=== PATIENT | male | born 1940 | race Caucasian/White ===

== ENCOUNTER 2018-12-12 09:09 | Observation (INO) ==
[2018-12-12] MEDS ORDERED: ASPIRIN 325 MG TABLET PO STA (09:39)
[2018-12-12 10:04] LABS: Basophils % 0.5 % (0.0-0.8); Eosinophils # 0.1 10*3/uL (0.0-0.87); Eosinophils % 1.7 % (0.00-10.9); Hematocrit 42.1 VOL% (42.0-52.0); Hemoglobin 14.1 GM/DL (14.0-18.0); Immature Granulocytes % 0.3 %; Immature Granulocytes Absolute 0.02 #; Lymphocytes # 1.6 10*3/uL (1.4-4.0); Lymphocytes % 26.2 % (21.2-54.2); Mean Corpuscular HGB Conc 33.5 GM/DL (32-36); Mean Corpuscular Volume 94.8 FL (87-102); Mean Platelet Volume 9.5 FL (9.6-12.0); Monocytes % 6.7 % (1.7-12.7); Neutrophils % 64.6 % (38.7-73.9); Platelet Count 267 T/CUMM (130-400); Red Blood Count 4.44 MC/CUMM (3.8-5.5); Red Cell Distribution Width 12.5 % (9.3-17.3)
[2018-12-12 10:26] LABS: Albumin 4.5 G/DL (3.4-5.0); Bilirubin,Total 0.5 MG/DL (0.2-1.0); Calcium 9.5 MG/DL (8.5-10.1); Osmolality,Calculated 284.4 MOS/KG (273-304); Total Protein 7.2 G/DL (6.4-8.3)
[2018-12-12] MEDS ORDERED: BISACODYL 5 MG TABLET PO PRN (11:28)
[2018-12-12] MEDS ORDERED: ONDANSETRON 4 MG/2 ML VIAL IV PRN (11:28)
[2018-12-12] MEDS ORDERED: DOCUSATE SODIUM 100 MG CAPSULE PO PRN (11:28)
[2018-12-12] MEDS ORDERED: MAGNESIUM SULF RIDER 2 GM in PREMIX 1 EACH IV PRN (11:28)
[2018-12-12] MEDS ORDERED: MAGNESIUM SULF RIDER 4 GM in PREMIX 1 EACH IV PRN (11:28)
[2018-12-12] MEDS ORDERED: diphenhydrAMINE CAP 25 MG CAPSULE PO PRN (11:28)
[2018-12-12] MEDS ORDERED: PROMETHAZINE 25 MG TABLET PO PRN (11:28)
[2018-12-12] MEDS ORDERED: MORPHINE 4 MG/1 ML VIAL IV PRN (11:28)
[2018-12-12] MEDS ORDERED: guaiFENesin/DM ER 600-30 MG TABLET PO PRN (11:28)
[2018-12-12] MEDS ORDERED: ZALEPLON 5 MG CAPSULE PO PRN (11:28)
[2018-12-12] MEDS ORDERED: NITROGLYCERIN SL 0.4 MG TABLET SL PRN (11:32)
[2018-12-12] MEDS ORDERED: ENOXAPARIN 80 MG/0.8 ML SYRINGE SUBCUT ONE (11:32)
[2018-12-12] MEDS: SODIUM CHLORIDE 0.45% 1,000 ML IV SCH (12:53)
[2018-12-12] MEDS ORDERED: DEXTROSE 50% 25 GM/50 ML SYRINGE IV PRN (13:23)
[2018-12-12] MEDS ORDERED: GLUCAGON 1 MG VIAL IM PRN ×2 (13:23→13:24)
[2018-12-12] MEDS ORDERED: DEXTROSE 50% 25 GM/50 ML VIAL IV PRN (13:24)
[2018-12-12] MEDS: TAMSULOSIN 0.4 MG CAPSULE PO SCH (15:34)
[2018-12-12] MEDS: CARVEDILOL 12.5 MG TABLET PO SCH ×2 (15:34→17:33)
[2018-12-12] MEDS: ROSUVASTATIN 20 MG TABLET PO SCH (15:34)
[2018-12-12] MEDS: LOSARTAN 50 MG TABLET PO SCH (15:34)
[2018-12-12] MEDS: Canagliflozin [Invokana] 300 MG PO SCH (15:34)
[2018-12-12] MEDS: FENOFIBRATE 145 MG TABLET PO SCH (15:35)
[2018-12-12] MEDS: CILOSTAZOL 100 MG TABLET PO SCH ×2 (15:35→21:02)
[2018-12-12] MEDS: SPIRONOLACTONE 25 MG TABLET PO SCH (15:35)
[2018-12-12] MEDS: INSULIN LISPRO 100 UNIT/ML SUBCUT SCH ×2 (15:45→21:05)
[2018-12-12 15:54] LABS: Apearance,Urine CLEAR (Clear); Bilirubin,Urine Negative (Negative); Blood, Urine Negative (Negative); Glucose,Urine (UA) >=500 mg/dL (Negative); Hyaline Casts,Urine 1 /LPF (0-3); Ketones,Urine Negative (Negative); Nitrite,Urine Negative (Negative); Protein,Urine Negative; RBC,Urine <1 /HPF (0-4); Squamous Epithelial Cell,Urine Occasional /HPF (0-10); Urine Color Yellow (Yellow); Urine Specific Gravity 1.027 (1.001-1.035); Urine Urobilinogen < 2.0 EU/DL (0.2-1.0); WBC,Urine <1 /HPF (0-6)
[2018-12-12] MEDS: glipiZIDE 10 MG TABLET PO SCH (17:33)
[2018-12-12] MEDS: POTASSIUM CHLORIDE 20 MEQ TABLET PO PRN (18:37)
[2018-12-12] MEDS ORDERED: ALBUTEROL 2.5 MG/3 ML NEB RESP TX PRN (19:00)
[2018-12-12] MEDS ORDERED: CALCIUM CARBONATE CHEW 500 MG TABLET PO PRN (19:54)
[2018-12-12] MEDS ORDERED: ASPIRIN EC 325 MG TABLET PO SCH (23:00)
[2018-12-13 04:27] LABS: Basophils % 0.7 % (0.0-0.8); Eosinophils # 0.2 10*3/uL (0.0-0.87); Eosinophils % 2.9 % (0.00-10.9); Hematocrit 39.6 VOL% (42.0-52.0); Hemoglobin 13.3 GM/DL (14.0-18.0); Immature Granulocytes % 0.4 %; Immature Granulocytes Absolute 0.02 #; Lymphocytes # 1.5 10*3/uL (1.4-4.0); Lymphocytes % 26.7 % (21.2-54.2); Mean Corpuscular HGB Conc 33.6 GM/DL (32-36); Mean Corpuscular Volume 96.6 FL (87-102); Mean Platelet Volume 9.6 FL (9.6-12.0); Monocytes % 9.6 % (1.7-12.7); Neutrophils % 59.7 % (38.7-73.9); Platelet Count 248 T/CUMM (130-400); Red Cell Distribution Width 12.6 % (9.3-17.3); White Blood Count 5.5 T/CUMM (4-12)
[2018-12-13 05:05] LABS: Blood Urea Nitrogen 17 MG/DL (7-18); Calcium 8.8 MG/DL (8.5-10.1); Glucose 134 MG/DL (74-106); HDL Cholesterol 41 MG/DL (40-60); Osmolality,Calculated 280.5 MOS/KG (273-304); Risk Ratio 2.76; Triglycerides 197 MG/DL (2-150); Troponin I < 0.015 NG/ML (0.00-0.045); VLDL CHOLESTEROL 39.4 MG/DL
[2018-12-13] MEDS ORDERED: PANTOPRAZOLE 40 MG TABLET PO SCH (09:00)
[2018-12-13] MEDS: POTASSIUM CHLORIDE 20 MEQ TABLET PO PRN (10:06)
[2018-12-13] MEDS: SODIUM CHLORIDE 0.45% 1,000 ML IV SCH ×3 (10:06→11:52)
[2018-12-13] MEDS: CARVEDILOL 12.5 MG TABLET PO SCH ×2 (10:06→16:50)
[2018-12-13] MEDS: glipiZIDE 10 MG TABLET PO SCH ×2 (10:06→16:49)
[2018-12-13] MEDS: ROSUVASTATIN 20 MG TABLET PO SCH (10:06)
[2018-12-13] MEDS: CILOSTAZOL 100 MG TABLET PO SCH (10:06)
[2018-12-13] MEDS: INSULIN LISPRO 100 UNIT/ML SUBCUT SCH ×3 (10:07→16:49)
[2018-12-13] MEDS ORDERED: diphenhydrAMINE CAP 25 MG CAPSULE PO ONE (11:37)
[2018-12-13] MEDS ORDERED: MAGNESIUM SULF RIDER 2 GM in PREMIX 1 EACH IV PRN (11:37)
[2018-12-13] MEDS ORDERED: DIAZEPAM 5 MG TABLET PO ONE (11:37)
[2018-12-13] MEDS ORDERED: POTASSIUM CHLORIDE RIDER 10 MEQ in PREMIX 1 EACH IV PRN (11:37)
[2018-12-13] MEDS ORDERED: NITROGLYCERIN DRIP 50 MG/250 ML BOTTLE IV ONE (11:55)
[2018-12-13] MEDS ORDERED: HEPARIN/NACL 0.9% 2 UNITS/ML 1,000 ML IV ONE (11:55)
[2018-12-13] MEDS ORDERED: VERAPAMIL 5 MG/2 ML VIAL ONE (11:55)
[2018-12-13] MEDS ORDERED: LIDOCAINE 1% 20 ML VIAL ONE (11:55)
[2018-12-13] MEDS ORDERED: MIDAZOLAM 2 MG/2 ML VIAL ONE (12:11)
[2018-12-13] MEDS ORDERED: HYDROmorphone 2 MG/1 ML VIAL ONE (12:11)
[2018-12-13] MEDS ORDERED: ENOXAPARIN 30 MG/0.3 ML SYRINGE ONE (12:16)
[2018-12-13] MEDS: SPIRONOLACTONE 25 MG TABLET PO SCH (13:09)
[2018-12-13] MEDS: TAMSULOSIN 0.4 MG CAPSULE PO SCH (13:10)
[2018-12-13] MEDS: Canagliflozin [Invokana] 300 MG PO SCH (13:10)
[2018-12-13] MEDS: FENOFIBRATE 145 MG TABLET PO SCH (13:10)
[2018-12-13] MEDS: LOSARTAN 50 MG TABLET PO SCH (13:10)
[2018-12-13 16:49] VITALS: BP 133/69
== END 2018-12-13 16:52 | disposition home or self-care (01) ==
LOC: N.EDINP 09:09 → N.ED 09:09 → N.TELES 14:40
PROVIDERS: ADMIT Internal Medicine Cardiovascular Disease; ATTEND Internal Medicine Cardiovascular Disease
PROC: CLCCHCL (ICD-10-PCS; 2018-12-13 15:45)